=== PATIENT | male | born 1955 | race Caucasian/White ===

== ENCOUNTER 2017-09-16 21:24 | Observation (INO) | payer OTHER ==
[~2017-09-16] VITALS: Ht 182.9 cm; Wt 85.8 kg
[2017-09-16 21:25] VITALS: BP 114/77
[2017-09-17 00:11] VITALS: BP 132/56
[2017-09-17 00:50] LABS: ABSOLUTE NEUTROPHILS 3.2 thou/uL (1.4-8.2); EOSINOPHILS 8.7 % (0.0-3.0); HEMATOCRIT 40.1 % (42.0-52.0); HEMOGLOBIN 13.5 gm/dL (14.0-18.0); LYMPHOCYTES 30.2 % (24.0-44.0); MCH 30.1 pg (26.0-34.0); MCHC 33.7 g/dL (28.0-37.0); MCV 89.4 fL (80.0-100.0); MONOCYTES 9.5 % (1.0-8.0); PLATELET COUNT 223 thou/uL (150-400); POLYS 50.6 % (36.0-66.0); RBC 4.49 mil/uL (4.50-6.00); RDW 14.3 % (10.5-14.5); WBC 6.3 thou/uL (4.0-11.0)
[2017-09-17 00:59] LABS: ALBUMIN 3.2 g/dL (3.4-5.0); CREATININE 0.8 mg/dL (0.7-1.3); TOTAL BILIRUBIN 0.3 mg/dL (<0.1-1.0); TOTAL PROTEIN 6.2 g/dL (6.4-8.2)
[2017-09-17] MEDS ORDERED: JEVITY 1.5 CAL237 ML PER TUBE (01:29)
[2017-09-17] MEDS ORDERED: [UNRECOGNIZED DRUG - OTHER] (01:32)
[2017-09-17] MEDS ORDERED: [UNRECOGNIZED DRUG - OTHER] (01:35)
[2017-09-17] MEDS ORDERED: WATER (01:38)
[2017-09-17] MEDS ORDERED: VITAMINC500 PER TUBE (01:39)
[2017-09-17] MEDS ORDERED: LIPITOR10 MG PER TUBE (01:40)
[2017-09-17] MEDS ORDERED: ASPIRIN325 PER TUBE (01:40)
[2017-09-17] MEDS ORDERED: BISACODYL SUPP10 MG RECTAL (01:41)
[2017-09-17] MEDS ORDERED: VITAMIN D1000 UNI1 PER TUBE (01:41)
[2017-09-17] MEDS ORDERED: DUONEB 2.5-0.5 M3 ML INH (01:42)
[2017-09-17] MEDS ORDERED: FISH OIL 1,001000 M2 PER TUBE (01:43)
[2017-09-17] MEDS ORDERED: LANSOPRAZOLE15 MG PER TUBE (01:45)
[2017-09-17] MEDS ORDERED: ENOXAPARIN40 MG/0.1 SUBQ (01:46)
[2017-09-17] MEDS ORDERED: MILK OF MA2400 MG/10 PER TUBE (01:48)
[2017-09-17] MEDS ORDERED: ALUM-MAG HYDRO360 ML PER TUBE (01:50)
[2017-09-17] MEDS ORDERED: MIRALAX17 GM PO (01:51)
[2017-09-17] MEDS ORDERED: 12 HOUR NASAL R15 ML INH (01:52)
[2017-09-17] MEDS ORDERED: SENNA8.6 MG PO (01:54)
[2017-09-17] MEDS ORDERED: PERIDEX15 ML PO (01:54)
[2017-09-17] MEDS ORDERED: TYLENOL EXTRA500 MG PO (01:56)
[2017-09-17] MEDS ORDERED: TYLENOL EXTRA500 MG PER TUBE (01:57)
[2017-09-17] MEDS ORDERED: ZENPEP DR 40,01 EACH PER TUBE (03:02)
[2017-09-17 04:31] VITALS: BP 115/81
[2017-09-17 08:24] VITALS: BP 136/85
[2017-09-17 16:37] VITALS: BP 96/57
[2017-09-18 03:39] VITALS: BP 128/81
[2017-09-18 08:00] VITALS: BP 136/88
[2017-09-18 16:00] VITALS: BP 111/63
[2017-09-18 19:43] VITALS: BP 100/71
[2017-09-19 03:04] VITALS: BP 102/67
[2017-09-19 08:00] VITALS: BP 114/72
[2017-09-19 16:00] VITALS: BP 104/72
[2017-09-19 16:05] VITALS: BP 121/91
[2017-09-19 20:41] VITALS: BP 112/74
[2017-09-20 03:46] VITALS: BP 120/82
[2017-09-20 08:00] VITALS: BP 113/79
== END 2017-09-20 11:25 ==
LOC: ER 21:24 → 4S 23:48 → EROBS 23:48 → 4S 09-17 00:14
PROVIDERS: Emergency Medicine
DX: Z60.9 Problem related to social environment, unspecified (principal); G35 Multiple sclerosis; R53.1 Weakness; I69.354 Hemiplegia and hemiparesis following cerebral infarction affecting left non-dominant side; J45.909 Unspecified asthma, uncomplicated; E78.5 Hyperlipidemia, unspecified; K21.9 Gastro-esophageal reflux disease without esophagitis; L98.499 Non-pressure chronic ulcer of skin of other sites with unspecified severity; Z93.1 Gastrostomy status; Z79.899 Other long term (current) drug therapy